=== PATIENT | female | born 1940 | race Caucasian/White ===

== ENCOUNTER 2018-11-30 21:15 | Inpatient (IN) | payer MEDICARE, BC ==
[~2018-11-30] VITALS: Ht 154.9 cm; Wt 62.6 kg
[2018-11-30] MEDS ORDERED: CHOL100043 PO (21:30)
[2018-11-30] MEDS ORDERED: ATEN1TAB3 PO (21:30)
[2018-11-30] MEDS ORDERED: ATOR20TA PO (21:30)
[2018-11-30] MEDS ORDERED: ASPI-1101 PO (21:30)
[2018-11-30] MEDS ORDERED: ALPR0.255 PO (21:30)
--- NOTE | 2018-11-30 21:48 | NUR ---
MD AT BEDSIDE FOR HX AND PHYSICAL
--- NOTE | 2018-11-30 21:53 | NUR ---
CELL PLASTERER AT BEDSIDE
--- NOTE | 2018-11-30 22:11 | NUR ---
JEFFERY LEE CALLED, WILL BE HERE WITHIN THE HOUR.
--- NOTE | 2018-11-30 22:11 | NUR ---
ANATOMY PROFESSOR ABLE TO SPEAK WITH JESUS ABDULLAHI. STATES HE WILL BE ARRIVING WITHIN THE HOUR
--- NOTE | 2018-11-30 22:43 | NUR ---
JESUS ABDULLAHI AT BEDSIDE FOR EVAL
--- NOTE | 2018-11-30 23:27 | NUR ---
PER BRADLY LEE: PT IS FOR VOLUNTARY ADMISSION TO THE MHU UNDER DR. DE LA CRUZ BED CALL: [phone]
--- NOTE | 2018-11-30 23:45 | NUR ---
PT BELONGINGS LIST SIGNED. PT COMPLIANT AND CALM DENIES SI/HI CONCERNS AT THIS TIME PT NAD, AMBULATORY WITH STABLE GAIT PT IS KEPT COMFORTABLE, CHANGED INTO PT GOWN PT WILL BE ADMITTED TO MHU UNDER DR DE LA CRUZ / [place]
--- NOTE | 2018-11-30 23:55 | NUR ---
HAND OFF AND SBAR GIVEN TO LUZ MARIA KAPLAN (U)
--- NOTE | 2018-11-30 23:57 | NUR ---
PT WILL BE TRANSPORTED VIA WHEELCHAIR ACCOMPANIED BY RN AND FAMILY PT KEPT SAFE WARM AND COMFORTABLE PT NAD, CALM AND COMPLIANT, DENIES SI/HI CONCERNS AT THIS TIME.
[2018-12-01] MEDS ORDERED: TEMAZEPAM 7.5 MG CAPSULE PO PRN (00:15)
[2018-12-01] MEDS ORDERED: ACETAMINOPHEN 325 MG TABLET PO PRN (00:15)
[2018-12-01] MEDS ORDERED: BLOOD SUGAR DIAGNOSTIC 1 EACH STRIP VI ONE (00:15)
[2018-12-01] MEDS ORDERED: MAG HYDROX/AL HYDROX/SIMETH 30 ML LIQUID UDC PO PRN (00:15)
[2018-12-01] MEDS ORDERED: MAGNESIUM HYDROXIDE 30 ML LIQUID UDC PO PRN (00:15)
[2018-12-01] MEDS ORDERED: CLONAZEPAM 0.5 MG TABLET PO PRN (00:15)
[2018-12-01 00:30] VITALS: BP 157/77
--- NOTE | 2018-12-01 00:50 | NUR ---
Admission Note: 78 y.o. female brought to MHU from ER via gurney accompanied by ER staff. Pt admitted on a Voluntary status under the care of Dr Marie and Farmer General Katelynn. Pt was transferred from [facility] after being medically cleared. Per PET report, Pt took an overdose of an unknown number of Xanax 0.25mg. Pt claims that it was not intentional, but �a stupid mistake� in desperately trying to get to sleep, Denies past SI. C/o increased anxiety and sleeplessness. Upon face to face assessment, Pt confirms what is written in the report, but minimizes her actions stating, �I just needed to sleep.� Presents with elevated affect, pressured speech, and low mood. Pt states she has never tried to hurt herself or have suicidal thoughts in the past and currently denies SI, verbally contracts for safety. Denies AH/VH/HI. Pt is anxious regarding her personal items and cell phone. Restless, Pt states she has insomnia and needs sleep medication, and states she is depressed due to her inability to sleep. Restoril 7.5 mg administered with good effect. Pt denies an access to firearms or any legal hx, denies any current or prior smoking or substance abuse issues. Skin assessment completed with licensed female staff-skin c/d/i. Medical h/o cataracts, HTN, HLD, anxiety, depression, and � knee replacement. Allergies noted to PCN, Naproxen, codeine, PNA and tetanus vaccination . Dr Marie and Farmer General Katelynn notified of admission, meds reconciled, orders received. Pt belongings inventoried, contraband placed in unit locker. Pt�s notified of admission per Pt request. A+Ox3, VS stable, denies pain, appears in no acute physical distress. Patient Rights handbook given to Pt, rights and unit rules explained to Pt who verbalized understanding. Pt oriented to the unit, the phone, the restrooms, and her room. Q 15 minute rounding initiated for safety
--- NOTE | 2018-12-01 06:08 | NUR ---
Patient slept a total of 4.15 hours.
--- NOTE | 2018-12-01 06:12 | NUR ---
Paged Dr Mota through [facility] to notify of admission and need for medication reconciliation, awaiting call back.
[2018-12-01 07:30] VITALS: BP 162/66
[2018-12-01] MEDS ORDERED: ESCITALOPRAM OXALATE 10 MG TABLET PO SCH (09:00)
[2018-12-01] MEDS ORDERED: CHOLECALCIFEROL 1,000 UNIT TABLET PO SCH (14:15)
[2018-12-01] MEDS ORDERED: ATENOLOL PO SCH (14:15)
[2018-12-01] MEDS ORDERED: CHLORTHALIDONE PO SCH (14:15)
[2018-12-01] MEDS ORDERED: ASPIRIN EC 81 MG TABLET.DR PO SCH (14:15)
[2018-12-01] MEDS ORDERED: ATENOLOL 50 MG TABLET PO SCH (14:46)
[2018-12-01] MEDS ORDERED: CHLORTHALIDONE 25 MG TABLET PO SCH (15:00)
[2018-12-01 15:50] LABS: BASOPHILS % (AUTO) 0.8 % (0.0-2.0); EOSINOPHILS # (AUTO) 0.1 K/uL (0.0-0.7); EOSINOPHILS % (AUTO) 1.5 % (0.0-7.0); HEMATOCRIT 41.6 % (31.2-41.9); HEMOGLOBIN 13.9 g/dL (10.9-14.3); LYMPHOCYTES # (AUTO) 1.5 K/uL (20.0-40.0); MEAN CORPUSCULAR HEMOGLOBIN 32.9 uug (24.7-32.8); MEAN CORPUSCULAR HGB CONC 33 g/dL (32.3-35.6); MEAN CORPUSCULAR VOLUME 98.3 fL (75.5-95.3); MONOCYTES # (AUTO) 0.4 K/uL (2.0-10.0); MONOCYTES % (AUTO) 7.2 % (0.0-11.0); NEUTROPHILS # (AUTO) 3.1 K/uL (1.8-8.9); NEUTROPHILS % (AUTO) 60.5 % (38.5-71.5); PLATELET COUNT (AUTO) 217 K/uL (179-408); RED BLOOD CELL COUNT(AUTO) 4.23 MIL/uL (3.63-4.92); WHITE BLOOD COUNT (AUTO) 5.1 K/uL (3.8-11.8)
[2018-12-01 15:55] LABS: MAGNESIUM 1.6 mg/dL (1.8-2.4); PHOSPHOROUS 3.5 mg/dL (2.5-4.9)
[2018-12-01 16:00] VITALS: BP 134/72
[2018-12-01 16:15] LABS: THYROID STIMULATING HORMONE 1.299 mIU/mL (0.358-3.740)
[2018-12-01 17:45] LABS: *BILIRUBIN,URIN NEGATIVE (NEGATIVE); *CLARITY,URINE SLIGHTLY CLOUDY (CLEAR); *COLOR,URINE YELLOW (YELLOW); *KETONES,URINE NEGATIVE (NEGATIVE); *UROBILINOGEN,URINE 0.2 E.U./dl (NORMAL); LEUKOCYTE ESTERASE ,URINE 2+ (NEGATIVE); NITRITE, URINE NEGATIVE (NEGATIVE); PH,URINE 6.5 (5.0-8.0); UGLUCOSE NEGATIVE (NEGATIVE)
[2018-12-01 17:55] LABS: *BLOOD, URINE TRACE (NEGATIVE)
[2018-12-01 17:58] LABS: BACTERIA,URINE MANY /HPF (NONE SEEN); MUCUS,URINE MANY /LPF (0-FEW); SQUAMOUS EPITHELIAL CELL,UR MODERATE /HPF (NONE SEEN)
--- NOTE | 2018-12-01 19:12 | NUR ---
!830 PATIENT FAMILY, GABRIELLA MCDOWELL AND CHILDREN CAME TO NURSES STATION AND WANTS PATIENT DISCHARGE HOME. [address] IRVIN REGARDING FAMILY'S DECISION TO DISCHARGE PATIENT TONIGHT. 1845 DR[address] IRVIN RETURNED CALL WITH ORDER TO DISCHARGE PATIENT AGAINTS MEDICAL ADVICE. FAMILY WANTS LIST OF PSYCHIATRIST REFERRAL. EXPLAINED TO PATIENT THAT [employer] CAN GIVE THEM THE LIST OF PSYCHIATRIST. FAMILY WILL CALL TOMORROW. 1900 PATIENT DISCHARGED AGAINTS MEDICAL ADVICE , WENT HOME WITH FAMILY. PATIENT ALERT AND OX3, DENIES SI/HI. NO DELUSION . NO A/V HALLUCINATION
[2018-12-01] MEDS ORDERED: ATORVASTATIN 20 MG TABLET PO SCH (21:00)
--- NOTE | 2018-12-02 11:29 | NUR ---
Discharge update structural steel worker helper met with patient and family Dorian (son; [phone]) upon admission to [facility]. Patient was feeling very anxious being here to begin with. structural steel worker helper comforted patient and reassured her that she would receive great care. However, due to the high acuity on the unit, several hours later patient and family decided to sign out of the hospital against medical advise. structural steel worker helper contacted family to provide them with outpatient mental health referrals for psychiatry and informed family that this screenplay writer will be available to them should they need further help.
== END 2018-12-01 19:00 | disposition left against medical advice (07) | DRG 885 ==
LOC: ER 21:15 → GPS 23:45
PROVIDERS: ADMIT Psychiatry & Neurology Psychiatry; ATTEND Nurse Practitioner Acute Care
DX: F32.2 Major depressive disorder, single episode, severe without psychotic features (principal); F41.1 Generalized anxiety disorder; T42.4X1D Poisoning by benzodiazepines, accidental (unintentional), subsequent encounter; T39.1X1D Poisoning by 4-Aminophenol derivatives, accidental (unintentional), subsequent encounter; E78.5 Hyperlipidemia, unspecified; R63.4 Abnormal weight loss; Z68.26 Body mass index [BMI] 26.0-26.9, adult; I10 Essential (primary) hypertension; Z79.82 Long term (current) use of aspirin; G47.00 Insomnia, unspecified
CPT/HCPCS: 36415; 71045; 83735; 84100; 84443; 85025; 87086; 93005; A4663